=== PATIENT | male | born 1935 | race Caucasian/White ===

== ENCOUNTER → 2018-07-23 13:03 | Outpatient (CLI) | payer MEDICARE | END | disposition home or self-care (01) | LOC: D.LAB 13:03 | PROVIDERS: ATTEND Urology | DX: N40.0 Benign prostatic hyperplasia without lower urinary tract symptoms (principal) ==

== ENCOUNTER → 2018-08-06 10:36 | Outpatient (CLI) | payer MEDICARE ==
--- NOTE | 2018-08-10 14:33 | EC ---
PATIENT:CHARLES ARGUETA DATE OF SERVICE: 08/06/18 SEX: M MEDICAL RECORD: [id number] DATE OF : 37 LOCATION:[facility] AGE OF PATIENT: 83 ADMISSION DATE: 08/06/18 REFERRING PHYSICIAN: INTERPRETING PHYSICIAN: JAYY MCFADDEN MD ECHOCARDIOGRAM REPORT ECHO CHARGES 4 ECHO COMPLETE Date: 08/06/18 CLINICAL DIAGNOSIS: ATRIAL FIB ECHOCARDIOGRAPHIC MEASUREMENTS (adult normal given) AC root (d.<3.7cm) 3.3 cm LV Septum d (<1.2 cm> 1.2 cm Valve Excursion 1.6 cm LV Septum (systole) 1.6 cm Left Atria (s.<4.0cm> 3.8 cm LVPW d(<1.2cm) 1.4 cm RV (d.<2.3cm) 4.6 cm LVPW (sytole) 1.6 cm LV diastole(<5.6CM) 5.7 cm MV E-F(>70mm/sec) cm LV systole 3.6 cm LVOT Diameter 1.8 cm MV exc.(>10mm) 1.7 cm Est.ejection fraction (50-75%) % DOPPLER: LVIT cm/sec A 39.0 cm/sec E 137 cm/sec LA cm/sec RVSP 35 mmHg LVOT 110 cm/sec AOP1/2T m/s Asc. Ao 246 cm/sec RVOT 85 cm/sec RA cm/sec PA 112 cm/sec AV Gradient Peak 24.15mmHg AV Mean 13.43mmHg AV Area 2.0 cm MV Gradient Peak 9.16 mmHg MV Mean 2.84 mmHg MV Area cm COMMENTS: Rotating Equipment Engineer: 2 SANTOS DURAN Solar Installation Manager: 3 Dr. Mallory TAPE# PACS Pericardial Effusion N DATE OF SERVICE: Adequate 2D, color flow, spectral Doppler, and M-Mode. Mild LVH. LV internal dimension is normal. Wall motion is normal. EF is greater than or equal to 55%. Aortic valve is sclerotic. No evidence of stenosis by Doppler interrogation. Left atrium is normal at 3.8 cm. Mitral valve shows no prolapse. Mild MR. Right-sided chambers grossly normal. Trace TR. TRANSINT:[id number] Voice Confirmation ID: [id number] DOCUMENT ID: [id number] ECHOCARDIOGRAM REPORT [id number] ARGUETACHARLES NAILS,JAYY Giles MD at 1433 CC: [id number] DICTATION DATE: 08/07/18 1320 HOSPITALITY DIRECTOR: 08/07/18 1338 DEP CLI 08/06/18 [facility] [address] [place] [address]
== END | disposition home or self-care (01) ==
LOC: D.HCCARDIO 10:30
PROVIDERS: ATTEND Internal Medicine Interventional Cardiology
DX: I48.91 Unspecified atrial fibrillation (principal)

== ENCOUNTER 2018-08-23 08:50 | Day surgery (SDC) | payer MEDICARE ==
[2018-08-20 11:37] LABS: ANION GAP 10.3 mmol/L (8-16); CALCIUM 9.4 mg/dL (8.5-10.1); CREATININE - SERUM 1.5 mg/dL (0.6-1.3); POTASSIUM - SERUM 4.3 mmol/L (3.5-5.1)
[2018-08-20 13:43] LABS: BASOPHILS 0.5 % (0-2); EOSINOPHILS 2.8 % (0-7); HEMOGLOBIN 13.3 g/dL (13.5-17.5); IMMATURE GRANULOCYTES 0.3 % (0-5); LYMPHOCYTES 24.4 % (15-50); MCH 33.3 pg (26.0-34.0); MCHC 34.1 g/dL (31.0-37.0); MCV 97.7 fL (80.0-100.0); MEAN PLATELET VOLUME 10.5 fL (7.4-10.4); PLATELET COUNT 270 10x3/uL (130-400); RBC 3.99 10x6/uL (4.20-6.10); RDW 13.4 % (11.5-14.5); WBC 10.3 10x3/uL (4.8-10.8)
[~2018-08-23] VITALS: Ht 175.3 cm; Wt 88.9 kg
[~2018-08-23 08:50] MED LIST: CARDURA8 MG PO; CELEXA20 MG PO; CENTRUM MEN'S1 EACH PO; COZAAR25 MG PO; ELIQUIS2.5 MG PO; GLUCOSAMINE HC500 MG PO; LANOXIN125 MCG PO; LIPITOR40 MG PO; METOPROLOL TART25 MG PO; OMEPRAZOLE20 M1 PO; PROAIR HFA INH; VITAMIN D31000 UNI2 PO; ZYRTEC10 MG PO
[2018-08-23 09:38] VITALS: BP 128/66; Ht 175.3 cm; Wt 88.9 kg
[2018-08-23 10:23] LABS: APTT 36.4 SECONDS (22.8-39.4); INR 1.19 (0.85-1.17); PROTIME 14.5 SECONDS (11.6-15.0)
--- NOTE | 2018-08-23 13:23 | OP ---
PATIENT NAME: CHARLES ARGUETA MEDICAL RECORD: [id number] :37 LOCATION:[facility] ADMISSION DATE: SURGEON: ANGELES DIAS MD DATE OF OPERATION: 08/23/2018 SURGEON: Angeles Dias MD ANESTHESIA: TIVA by Khalif Sin CRNA. DIAGNOSIS: Obstructive BPH. IPSS is 22. Quality of life score is 5. SHEELA 40 gram prostate. PROCEDURE: UroLift times 4 in box configuration. FINDINGS: Bladder neck obstruction, trabeculated bladder. Single ureteral orifices bilaterally with no bladder tumors. BLOOD LOSS: None. CLINICAL HISTORY: This is an 83-year-old male, who has obstructive BPH symptoms. He has previously had a TUNA procedure and then a TURP 14 years ago. He is taking testosterone supplementation. He wishes to have the UroLift procedure done. HE HAS AN ALLERGY TO IVP DYE. He was given Ancef manager social responsibility to the OR. DESCRIPTION OF PROCEDURE: The patient was given IV sedation. He was then placed into the lithotomy position and prepped and draped. The UroLift scope was introduced. Findings are as outlined above. Since the bladder neck is the main site of obstruction, I decided to place the units in the box configuration around the bladder neck to open up the bladder neck. All units were placed, 1.5 cm distal to the bladder neck. The anterior pair was placed at the anterolateral sulcus of the lateral lobe. One unit was placed on each side. At the mid urethral level 1 unit was placed on each side for a total of 4 units in a box configuration. The bladder neck was now wide open. The bladder was left slightly for a voiding trial. TRANSINT:[id number] Voice Confirmation ID: [id number] DOCUMENT ID: [id number] ANGELES DIAS MD at 1323 CC: [id number] DICTATION DATE: 08/23/18 1300 CRIME PREVENTION POLICE OFFICER: 08/23/18 1312 [facility] [address] [place] [id number]
--- NOTE | 2018-08-23 14:55 | NUR ---
PATIENT SHOWN HOW TO CHANGE FONTANEZ BAG TO LEG BAG, PIV DC'D WITH TIP INTACT, PATIENT DRESSING IN PERSONAL CLOTHING. DISCHARGE INSTRUCTIONS REVIEWED WITH PATIENT, AWAITING TRANSPORTATION FROM [facility]
== END 2018-08-23 15:05 | disposition home or self-care (01) ==
LOC: D.OPS 08:50 → D.PAN 11:15 → D.OPS 11:15
PROVIDERS: Anesthesiology; ATTEND Urology
DX: N40.1 Benign prostatic hyperplasia with lower urinary tract symptoms (principal); N13.8 Other obstructive and reflux uropathy; N32.89 Other specified disorders of bladder; Z01.812 Encounter for preprocedural laboratory examination

== ENCOUNTER → 2018-09-05 18:40 | Outpatient (CLI) | payer MEDICARE ==
[2018-08-23 09:38] VITALS: BMI 29.0
== END | disposition home or self-care (01) ==
LOC: D.LABREF 18:40
PROVIDERS: ATTEND Urology
DX: D72.829 Elevated white blood cell count, unspecified (principal)

== ENCOUNTER → 2018-09-28 07:38 | Outpatient (CLI) | payer MEDICARE ==
[2018-08-23 09:38] VITALS: BMI 29.0
== END | disposition home or self-care (01) ==
LOC: D.US 07:38
PROVIDERS: ATTEND Nurse Practitioner Family
DX: I12.9 Hypertensive chronic kidney disease with stage 1 through stage 4 chronic kidney disease, or unspecified chronic kidney disease (principal); N18.3 Chronic kidney disease, stage 3 (moderate); E11.9 Type 2 diabetes mellitus without complications; Z68.29 Body mass index [BMI] 29.0-29.9, adult

== ENCOUNTER → 2018-10-10 17:12 | Outpatient (CLI) | payer MEDICARE ==
[2018-08-23 09:38] VITALS: BMI 29.0
== END | disposition home or self-care (01) ==
LOC: D.LABREF 17:12
PROVIDERS: ATTEND Urology
DX: D72.829 Elevated white blood cell count, unspecified (principal)

== ENCOUNTER → 2018-10-16 10:33 | Outpatient (CLI) | payer MEDICARE ==
[2018-08-23 09:38] VITALS: BMI 29.0
== END | disposition home or self-care (01) ==
LOC: D.RT 10-11 11:00
PROVIDERS: ATTEND Internal Medicine Pulmonary Disease
DX: J44.9 Chronic obstructive pulmonary disease, unspecified (principal)

== ENCOUNTER → 2018-12-12 08:03 | Outpatient (CLI) | payer MEDICARE ==
[2018-08-23 09:38] VITALS: BMI 29.0
--- NOTE | 2018-12-19 10:41 | ST ---
PATIENT:CHARLES ARGUETA MEDICAL RECORD: [id number] SEX: M LOCATION:[facility] ORDER #: ADMISSION DATE: 12/12/18 AGE OF PATIENT: 83 REFERRING PHYSICIAN: INTERPRETING PHYSICIAN: CANDI DEVLIN MD DATE OF SERVICE: 12/12/2018 INDICATION: Angina, hyperlipidemia, abnormal ECG, and atrial fibrillation. He was exercised on standard Lexiscan protocol with 33 mCi of sestamibi injected at peak stress, 11 mCi were used previously for rest images. FINDINGS: Gated SPECT reveals preserved ejection fraction at 61% with good wall motion and thickening and brightening throughout all segments. SPECT imaging Cardiolite was used as myocardial fusion agent. There is homogeneous uptake throughout all segments at rest and stress with no evidence of inducible ischemia or previous infarction. OVERALL IMPRESSION: 1. This is a normal nuclear stress test with no evidence of inducible ischemia or previous infarction. 2. Gated SPECT reveals a preserved ejection fraction at 61%. In this patient with ongoing symptomatology, the current scan does not suggest the presence of hemodynamically significant coronary artery disease. Evaluate noncardiac etiology of chest pain. TRANSINT:[id number] Voice Confirmation ID: [id number] DOCUMENT ID: [id number] CANDI DEVLIN MD at 1041 CC: CHRISTOPH TREJO [id number] DICTATION DATE: 12/14/18816 PASSENGER SOLICITOR: 12/15/18 0040 DEP CLI 12/12/18 [facility] [address] [place] [address]
== END | disposition home or self-care (01) ==
LOC: D.HCCARDIO 08:03
PROVIDERS: ATTEND Internal Medicine Interventional Cardiology
DX: I20.9 Angina pectoris, unspecified (principal)

== ENCOUNTER → 2019-10-22 08:09 | Outpatient (CLI) | payer MEDICARE ==
[2018-08-23 09:38] VITALS: BMI 29.0
== END | disposition home or self-care (01) ==
LOC: D.US 08:09
PROVIDERS: ATTEND Internal Medicine
DX: N18.3 Chronic kidney disease, stage 3 (moderate) (principal); I10 Essential (primary) hypertension; R35.1 Nocturia; E11.9 Type 2 diabetes mellitus without complications